=== PATIENT | male | born 1975 | race African-American/Black ===

== ENCOUNTER 2023-10-18 14:08 | Emergency (ER) | payer MEDICAID ==
[~2023-10-18] VITALS: Ht 165.1 cm; Wt 80.0 kg
[2023-10-18 14:20] VITALS: O2SAT 98
[2023-10-18 14:54] LABS: BASOPHILS % 0.9 % (0.0-2.0); EOSINOPHILS % 4.5 % (0.0-5.0); HEMATOCRIT. 45.2 % (42.0-52.0); HEMOGLOBIN. 15.7 g/dL (14.0-18.0); LYMPHOCYTES % 32.9 % (20.0-50.0); MEAN CORPUSCULAR HEMOGLOBIN 31.5 pg (28.0-32.0); MEAN CORPUSCULAR HGB CONC 34.7 g/dL (31.0-37.0); MEAN CORPUSCULAR VOLUME 90.9 fL (80.0-94.0); MEAN PLATELET VOLUME 10.1 fl (7.4-10.4); MONOCYTES % 10.4 % (2.0-8.0); NEUTROPHILS % 51.3 % (40.0-76.0); PLATELET 179 x1000/uL (130-400); RED BLOOD CELL COUNT 4.98 mill/uL (4.7-6.1); RED CELL DISTRIBUTION WIDTH 13.9 % (11.6-14.6); WHITE BLOOD COUNT 5.4 x1000/uL (4.5-11.0)
[2023-10-18 15:02] LABS: HCG SCREEN NEGATIVE
[2023-10-18 15:03] LABS: ALANINE AMINOTRANSFERASE 64 IU/L (10-49); ALBUMIN 4.8 g/dL (3.2-4.8); ASPARTATE AMINOTRANSFERASE 43 IU/L (<34); BILIRUBIN TOTAL 0.6 mg/dL (0.1-1.0); CALCIUM 9.5 mg/dL (8.7-10.4); CARBON DIOXIDE 31 mEq/L (21-32); CHLORIDE 99 mEq/L (98-107); CREATININE 0.9 mg/dL (0.6-1.3); GLUCOSE 112 mg/dL (70-105); PROTEIN TOTAL 8.2 g/dL (6.0-8.3); SODIUM 138 mEq/L (136-145); UREA NITROGEN BLOOD 14 mg/dL (9-23)
[2023-10-18] MEDS: KETOROLAC 60MG/2ML VIAL IM NR (20:16)
[2023-10-18] MEDS: CLONIDINE 0.1MG TABLET PO ONE (21:54)
[2023-10-18 21:56] VITALS: RESP 18
[2023-10-18 22:45] LABS: CLARITY URINE CLEAR (CLEAR); COLOR URINE YELLOW (YELLOW); GLUCOSE URINE NEGATIVE (NEGATIVE); KETONES URINE NEGATIVE (NEGATIVE); LEUKOCYTE ESTERASE URINE NEGATIVE (NEGATIVE); NITRITE URINE NEGATIVE (NEGATIVE); OCCULT BLOOD URINE NEGATIVE (NEGATIVE); PROTEIN URINE 2+ (NEGATIVE); SPECIFIC GRAVITY URINE 1.019 (1.005-1.030); UROBILINOGEN URINE 0.2 E.U./dL (0.2-1.0)
[2023-10-18] MEDS ORDERED: NAPR-681 PO (23:00)
[2023-10-18] MEDS ORDERED: CEPH500T MT (23:00)
[2023-10-18 23:09] VITALS: BP 162/89; PULSE 69; TEMP 97.7
[2023-10-18 23:11] LABS: BACTERIA URINE TRACE; RBC URINE NONE SEEN /hpf (0-2); SQUAMOUS EPITHELIAL CELL URINE RARE /lpf (RARE/1+); WBC URINE 0-2 /hpf (0-2)
== END 2023-10-18 23:14 | disposition home or self-care (01) ==
LOC: ER 14:08
DX: R10.9 Unspecified abdominal pain (principal); I10 Essential (primary) hypertension; N30.90 Cystitis, unspecified without hematuria
CPT/HCPCS: 99285; 74176; 80053; 81003; 84703; 83690; 85025; 87086; 36415; 96372; J1885